=== PATIENT | female | born 1975 | race Caucasian/White ===

== ENCOUNTER 2017-03-23 10:53 | Emergency (ER) | payer OTHER ==
[~2017-03-23] VITALS: Ht 170.2 cm; Wt 107.2 kg
[~2017-03-23 10:53] MED LIST: ALBUTEROL SULF8.5 GM IH; ASPIR 8181 M1 PO; ASPIRIN EC325 MG PO; ATORVASTATIN CA80 MG PO; AVEENO ANTI IT TP; B COMPLETE1 EACH PO; BACTRIM,SEPT1 TABLET PO; BRINTELLIX10 MG PO; BUPROPION HCL100 M1 PO; CHANTIX1 EACH PO; CYMBALTA30 MG PO; DAILY VITAMIN1 EAC8 PO; DESYREL 150 MG150 MG PO; DESYREL12.5 MG PO; DILAUDID2 MG PO; EFFIENT10 MG PO; FLEXERIL10 MG PO; FLONASE16 G1 BOTH NARES; GLUCOPHAGE500 MG PO; KEFLEX500 MG PO; LIPITOR80 MG PO; MIRAPEX0.5 MG PO; MOBIC7.5 MG PO; MORPHINE SULFAT15 M1 PO; NITROSTAT0.4 MG SL; PRILOSEC20 MG PO; PROAIR HFA8.5 GM IH; ROBAXIN500 MG PO; VITAMIN D1000 INTUN PO; VITAMIN D31000 UNIT PO; ZETIA10 MG PO; ZOLOFT50 MG PO; ZOLPIDEM TARTRAT5 MG PO
[2017-03-23] MEDS ORDERED: KEFLEX500 MG PO (14:14)
[2017-03-23 14:41] VITALS: BP 0/0
== END 2017-03-23 14:42 | disposition home or self-care (01) ==
LOC: RME 10:53 → EME 10:53 → RME 14:42
DX: L03.221 Cellulitis of neck (principal); I25.2 Old myocardial infarction; Z98.61 Coronary angioplasty status
CPT/HCPCS: 72040; 99281; 99283; J1885

== ENCOUNTER 2017-04-09 11:42 | Emergency (ER) | payer OTHER ==
[~2017-04-09] VITALS: Ht 170.2 cm; Wt 104.5 kg
[2017-04-09 14:11] LABS: HEMATOCRIT 41.7 % (36.0-46.0); MCH 27.7 PG (29.0-34.0); MCHC 32.1 G/DL (30.0-36.0); MCV 86.3 FL (83-99); MEAN PLAT.VOLUME 11.8 uM^3 (9.5-12.4); NRBC (%) 0.1 /100 WBC (0-0); PLATELET COUNT 215 K/uL (156-360); RBC DIS.WIDTH-CV 14.9 % (11.8-14.6); RBC DIS.WIDTH-SD 46.8 % (39-53); RED BLOOD COUNT 4.83 M/uL (3.80-5.20); WHITE BLOOD COUNT 16.5 K/uL (4.1-10.2)
[2017-04-09 14:18] LABS: CHLORIDE 106 mEq/L (99-109); POTASSIUM 3.8 mEq/L (3.7-5.4); SODIUM 141 mEq/L (136-147)
[2017-04-09 14:20] LABS: GLUCOSE 83 mg/dL (70-99)
[2017-04-09 14:21] LABS: ANION GAP 6 MEQ/L (2-14)
[2017-04-09 14:23] LABS: GFR ESTIMATE (CALCULATED) > 59 mL/min/
[2017-04-09 14:24] LABS: UREA NITROGEN (BUN) 12 mg/dL (9-23)
[2017-04-09 14:39] LABS: QUANTITATIVE HCG < 4.0 MIU/ML
[2017-04-09] MEDS ORDERED: VALIUM5 MG PO (15:47)
[2017-04-09] MEDS ORDERED: INDOCIN50 MG PO (15:47)
[2017-04-09 16:07] VITALS: BP 150/85
== END 2017-04-09 16:07 | disposition home or self-care (01) ==
LOC: EME 11:42
PROVIDERS: Physician Assistant
DX: M54.12 Radiculopathy, cervical region (principal); M62.830 Muscle spasm of back; Z87.891 Personal history of nicotine dependence; Z91.040 Latex allergy status; Z88.5 Allergy status to narcotic agent; Z88.8 Allergy status to other drugs, medicaments and biological substances; Z91.041 Radiographic dye allergy status; Z91.048 Other nonmedicinal substance allergy status; I25.2 Old myocardial infarction; E78.5 Hyperlipidemia, unspecified; Z95.5 Presence of coronary angioplasty implant and graft; Z97.8 Presence of other specified devices; Z89.512 Acquired absence of left leg below knee; F17.200 Nicotine dependence, unspecified, uncomplicated
CPT/HCPCS: 72125; 72128; 80048; 84702; 85027; 93005; 99281; 99284; J1885

== ENCOUNTER 2017-05-16 19:27 | Emergency (ER) | payer OTHER ==
[~2017-05-16] VITALS: Ht 172.7 cm; Wt 105.9 kg
[~2017-05-16 19:27] MED LIST changes: +INDOCIN50 MG PO; +VALIUM5 MG PO
[2017-05-16 21:36] LABS: HEMATOCRIT 40.2 % (36.0-46.0); MCHC 32.8 G/DL (30.0-36.0); MCV 85.2 FL (83-99); MEAN PLAT.VOLUME 11.7 uM^3 (9.5-12.4); RBC DIS.WIDTH-SD 46.5 % (39-53); RED BLOOD COUNT 4.72 M/uL (3.80-5.20); WHITE BLOOD COUNT 10.2 K/uL (4.1-10.2)
[2017-05-16 21:44] LABS: CHLORIDE 106 mEq/L (99-109); SODIUM 140 mEq/L (136-147)
[2017-05-16 21:46] LABS: GLUCOSE 102 mg/dL (70-99)
[2017-05-16 21:47] LABS: ANION GAP 9 MEQ/L (2-14)
[2017-05-16 21:50] LABS: GFR ESTIMATE (CALCULATED) > 59 mL/min/
[2017-05-16 21:51] LABS: UREA NITROGEN (BUN) 10 mg/dL (9-23)
[2017-05-16 21:57] VITALS: BP 118/73
[2017-05-16 22:19] LABS: PLAT.SUFFICIENCY DECREASED; PLATELET COUNT 130 K/uL (156-360)
== END 2017-05-16 21:58 | disposition home or self-care (01) ==
LOC: EME 19:27
PROVIDERS: Emergency Medicine
PROC: 3E0S3GC Introduction of Other Therapeutic Substance into Epidural Space, Percutaneous Approach (ICD-10-PCS; principal; 2017-05-16)
DX: G97.1 Other reaction to spinal and lumbar puncture (principal); Y84.4 Aspiration of fluid as the cause of abnormal reaction of the patient, or of later complication, without mention of misadventure at the time of the procedure; E78.5 Hyperlipidemia, unspecified; M79.7 Fibromyalgia; I25.2 Old myocardial infarction; Z95.5 Presence of coronary angioplasty implant and graft; Z89.512 Acquired absence of left leg below knee; F17.200 Nicotine dependence, unspecified, uncomplicated
CPT/HCPCS: 80048; 85027; 99281; 99284; C1755; J0780; J7030

== ENCOUNTER 2017-11-21 05:53 | Emergency (ER) | payer OTHER ==
[~2017-11-21] VITALS: Ht 170.2 cm; Wt 105.0 kg
[2017-11-21 07:20] LABS: BASOPHIL (%) 0.6 % (0-1); BASOPHIL COUNT 0.1 K/uL (0-0.1); EOSINOPHIL (%) 0.1 % (0-5); HEMATOCRIT 42.8 % (36.0-46.0); HEMOGLOBIN 13.7 G/DL (11.9-15.5); IMMATURE GRANULOCYTE (%) 1.3 % (0.0-0.7); LYMPHOCYTE COUNT 1.3 K/uL (1.0-2.8); MCH 27.9 PG (29.0-34.0); MCV 87.2 FL (83-99); MONOCYTE (%) 4.8 % (3-12); MONOCYTE COUNT 0.4 K/uL (0-0.8); NEUTROPHIL (%) 79.2 % (45-76); NEUTROPHIL COUNT 7.1 K/uL (1.8-6.4); PLATELET COUNT 183 K/uL (156-360); RBC DIS.WIDTH-CV 15.1 % (11.8-14.6); RED BLOOD COUNT 4.91 M/uL (3.80-5.20)
[2017-11-21 07:25] LABS: INTER. NORMALIZED RATIO 1.1
[2017-11-21 07:27] LABS: D-DIMER ELISA < 150.00 ng/mLDDU (<230); PTT 27.4 SEC (25-37)
[2017-11-21 07:45] LABS: TROP-I INTERPRETATION NEGATIVE; TROPONIN-I < 0.01 ng/mL (0.0-0.30)
[2017-11-21 07:51] LABS: CHLORIDE 105 MEQ/L (99-109); CREATININE 0.9 MG/DL (0.6-1.3); GFR ESTIMATE (CALCULATED) > 59 mL/min/; GLUCOSE 105 mg/dL (70-99); MAGNESIUM 1.8 mg/dl (1.3-2.7); POTASSIUM 4.2 MEQ/L (3.7-5.4); SODIUM 139 MEQ/L (136-147); UREA NITROGEN (BUN) 10 mg/dL (9-23)
[2017-11-21] MEDS ORDERED: TAMIFLU75 MG PO (09:59)
[2017-11-21] MEDS ORDERED: VENTOLIN HFA18 GM IH (10:00)
[2017-11-21 10:21] VITALS: BP 156/75
== END 2017-11-21 10:21 | disposition home or self-care (01) ==
LOC: EME 05:53
PROVIDERS: Emergency Medicine
DX: J10.1 Influenza due to other identified influenza virus with other respiratory manifestations (principal); R07.89 Other chest pain; I25.10 Atherosclerotic heart disease of native coronary artery without angina pectoris; E78.5 Hyperlipidemia, unspecified; J45.909 Unspecified asthma, uncomplicated; M79.7 Fibromyalgia; K31.84 Gastroparesis; E28.2 Polycystic ovarian syndrome; F17.200 Nicotine dependence, unspecified, uncomplicated; I25.2 Old myocardial infarction; Z79.82 Long term (current) use of aspirin; Z95.5 Presence of coronary angioplasty implant and graft; Z96.89 Presence of other specified functional implants; Z89.512 Acquired absence of left leg below knee; Z88.5 Allergy status to narcotic agent; Z91.040 Latex allergy status; Z91.041 Radiographic dye allergy status; Z91.09 Other allergy status, other than to drugs and biological substances
CPT/HCPCS: 71045; 80048; 83735; 84484; 85025; 85379; 85610; 85730; 87502; 93005; 94640; 99281; 99284